=== PATIENT | female | born 1995 | race Two or more races ===

== ENCOUNTER → 2024-04-06 | Outpatient (REF) | payer OTHER | LOC: M LAB REF 16:24 | PROVIDERS: ATTEND Surgery | DX: L72.0 Epidermal cyst (principal) ==

== ENCOUNTER → 2025-05-25 | Outpatient (CLI) | payer OTHER | LOC: M OUTALCOH 08:07 | PROVIDERS: ATTEND Psychiatry & Neurology Psychiatry | DX: Z03.89 Encounter for observation for other suspected diseases and conditions ruled out (principal) ==